=== PATIENT | male | born 1990 | race Two or more races ===

== ENCOUNTER 2025-07-19 19:14 | Emergency (ER) | payer MEDICAID ==
[~2025-07-19] VITALS: Ht 177.8 cm; Wt 96.1 kg
--- NOTE | 2025-07-19 19:35 | Physician Documentation ---
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 He denies any bowel or bladder incontinence pain does not radiate down his leg. He is otherwise healthy and has no other complaints at this time. Medication Reconciliation Allergies: Coded Allergies: No Known Allergies (Unverified , 07/19/25) Past Medical History Past Medical History: No Pertinent History Past Surgical History: no surgical history Alcohol Use: None Drug Use: none Review of Systems All Other Systems at this time: Reviewed and Negative Physical Exam Physical Exam Vital Signs: RN Vital Signs have been reviewed: Yes, Temperature: 97.8, Heart Rate: 79, Respiratory Rate: 16, BP: 126/68, Pulse Oximetry: 97, Weight: 96.100 Oxygen Flow Rate: 0 Physical Exam General: The patient is well developed, well nourished, nontoxic appearing and is in no acute distress. Skin: [place], warm and dry with no rashes. HEENT: Head was normocephalic and atraumatic. Eyes - pupils equal, round, reactive to light and accommodation. Extraocular movements were intact. Conjunctivae were nonicteric. . The mouth and oropharynx were clear with moist mucous membranes. There were no pharyngeal exudates or erythema. Neck: Supple and nontender. There was no jugular venous distention, Chest: Clear to auscultation bilaterally without wheezes, rales or rhonchi. No accessory muscle use. No dullness to percussion. Heart: Rate regular and rhythmic. S1, S2. No murmurs. Palpation of the chest wall was normal. No rubs or thrills. Abdomen: Soft, nontender and nondistended. Positive bowel sounds. No guarding or rebound. No hepatosplenomegaly or palpable masses. Back: T10-L1 bilateral paraspinal tenderness and muscle spasms Extremities: No cyanosis, clubbing or edema. The patient moves all extremities. Pulses were equal and symmetric. Neurologic: Cranial nerves II-XII were intact. Sensation was intact to light touch throughout. Motor strength was 5/5 in all four extremities. Deep tendon reflexes were intact in both upper and lower extremities. Psychologic: The patient was oriented to person, place and time. The patient demonstrated appropriate judgement and insight. Progress Results/Orders Reviewed/noted all lab results: Yes Results/Orders Orders - LUI GASPAR MD Ct Thoracic Spine (07/19/25 19:50) Completed Orders - LUI GASPAR MD Ct Thoracic Spine (07/19/25 19:50) Tramadol Tablet (Ultram Tablet) (07/19/25 19:45) Naproxen Tablet (Naprosyn Tablet) (07/19/25 19:45) Dexamethasone Tablet (Decadron Tablet) (07/19/25 20:15) Medications Received in ER Medications (Trade) Dose Ordered Sig/Doron Route PRN Reason Start Time Stop Time Status Last Admin Dose Admin (Ultram tablet) 100 mg ONCE ONCE PO 07/19/25 19:45 07/19/25 19:48 DC 07/19/25 19:49 100 MG (Naprosyn tablet) 500 mg ONCE ONCE PO 07/19/25 19:45 07/19/25 19:48 DC 07/19/25 19:49 500 MG Vital Signs 07/19/25 19:16 Temp 97.8 Pulse 79 Resp 16 B/P (MAP) 126/68 Pulse Ox 97 O2 Flow Rate 0 Re-Evaluation Re-Evaluation : Re-Evaluation: Improved Progress Patient was seen and examined. Patient is given reassurance. The patient was given anti-inflammatories Decadron, tramadol, naproxen. Prescription was written for naproxen and Flexeril at night follow up with primary care physician for possible physical therapy. Patient is encouraged to stretch. CT scan was obtained there was no acute abnormalities. Supportive care measures was discussed. EKG/XRAY/CT/US/VASC/MRI CT : CT: T-spine With Contrast?: No Impression EXAM: CT CT THORACIC SPINE INDICATION: Thoracic pain COMPARISON: None TECHNIQUE: Multiple axial CT images of the thoracic spine were obtained using bone algorithm. Axial and coronal reformatting was done. Bone and soft tissue windows were reviewed. Radiation Dose Information: CT Dose: CTDI volume is 27.71 mGy. Dose-length product is 1121.7 mGy*cm FINDINGS: No CT evidence of acute fracture or traumatic mal-alignment. The visualized paraspinal soft tissues are grossly unremarkable. The disc spaces are relatively preserved. There is multilevel degenerative change of the spine, with disc space narrowing, subchondral sclerosis, and marginal osteophyte formation. Nonobstructing punctate left renal calculi. Right upper lobe linear atelectasis. IMPRESSION: No CT evidence of acute fracture or traumatic mal-alignment of the bony thoracic spine. If symptoms persist, consider MRI for further evaluation. Radiation optimization: All CT scans at this facility use at least one of these dose optimization techniques: automated exposure control mA and/or kV adjustment per patient size (includes targeted exams where dose is matched to clinical indication) or iterative reconstruction. Electronically Signed by:YUMIKO VASQUES DO Date & Time: 07/19/252014 Medical Decision Making Additional info obtained from: old records Differential Dx:Considerations: Include: AAA, DJD, Fracture, Musculoskeletal pain, Strain, Other Departure Disposition: HOME / SELF CARE / HOMELESS Impression: Primary Impression: Low back pain Qualified Codes: M54.50 - Low back pain, unspecified Discharge Instructions: Acute Back Pain, Adult Referrals: NO PRIMARY CARE PROVIDER (PCP) Education Educated: Patient Educated regarding: diagnosis Signature Scribe Signature: No scribed Attestation: The note accurately reflects work and decisions made by me.Lui Gaspar MD 07/19/25 19:35 LUI GASPAR MD Jul 19, 2025 19:35
--- NOTE | 2025-07-19 20:17 | RADIOLOGY REPORT ---
EXAM: CT CT THORACIC SPINE INDICATION: Thoracic pain COMPARISON: None TECHNIQUE: Multiple axial CT images of the thoracic spine were obtained using bone algorithm. Axial and coronal reformatting was done. Bone and soft tissue windows were reviewed. Radiation Dose Information: CT Dose: CTDI volume is 27.71 mGy. Dose-length product is 1121.7 mGy*cm FINDINGS: No CT evidence of acute fracture or traumatic mal-alignment. The visualized paraspinal soft tissues are grossly unremarkable. The disc spaces are relatively preserved. There is multilevel degenerative change of the spine, with disc space narrowing, subchondral sclerosis, and marginal osteophyte formation. Nonobstructing punctate left renal calculi. Right upper lobe linear atelectasis. IMPRESSION: No CT evidence of acute fracture or traumatic mal-alignment of the bony thoracic spine. If symptoms persist, consider MRI for further evaluation. Radiation optimization: All CT scans at this facility use at least one of these dose optimization techniques: automated exposure control mA and/or kV adjustment per patient size (includes targeted exams where dose is matched to clinical indication) or iterative reconstruction.
[2025-07-19] MEDS ORDERED: CYCL-1 PO (21:05)
[2025-07-19 21:11] VITALS: BP 124/66; PULSE 74; RESP 18; TEMP 98.6; O2SAT 99
== END 2025-07-19 21:13 | disposition home or self-care (01) ==
LOC: ER 19:15
DX: M54.50 Low back pain, unspecified (principal)
CPT/HCPCS: 72128; 99284